=== PATIENT | male | born 1955 | race Caucasian/White ===

== ENCOUNTER → 2021-12-31 | Outpatient (CLI) | payer MEDICARE, OTHER | LOC: EMI 16:00 | DX: G30.8 Other Alzheimer's disease (principal); F01.50 Vascular dementia, unspecified severity, without behavioral disturbance, psychotic disturbance, mood disturbance, and anxiety; R41.89 Other symptoms and signs involving cognitive functions and awareness; R41.3 Other amnesia | CPT/HCPCS: 70551 ==